=== PATIENT | male | born 1955 | race Caucasian/White ===

== ENCOUNTER 2018-09-25 08:52 | Day surgery (SDC) | payer BC, OTHER ==
[2018-09-22 08:44] VITALS: BMI 28.7
[~2018-09-25 08:52] MED LIST: LACTATED RINGERS 1,000 ML IV SCH; LIDOCAINE 1% 20 ML VIAL (10MG/ML) FOR IV START INTRADERMA PRN
[2018-09-25 09:09] VITALS: TEMP 97.7
[2018-09-25] MEDS ORDERED: PROPOFOL 10 MG/ML 20 ML VIAL IV ONE (10:28)
--- NOTE | 2018-09-25 11:07 | P.PCN ---
Date of Procedure: 09/25/18 Procedure(s) Performed: Procedure: Colonoscopy and polypectomy. Preoperative diagnosis: Screening for neoplasia, patient has history of polyps and family history of colon cancer. Postoperative diagnosis: Sigmoid polyps snared. Preparation: HalfLytely prep. Sedation: Was provided by anesthesia. Brief clinical history: The patient is a 63-year-old male who is scheduled for this evaluation for screening for neoplasia because of history of polyps and family history of colon cancer in his father. The patient had to prior exams was in 2007 and one in 2011. He has no new abdominal symptoms, bleeding or anemia. Procedure: With the patient on his left lateral decubitus position and after informed consent and adequate sedation, the perianal area was inspected and it did not show any fissures or fistulas. There were no masses felt on digital rectal examination. The Olympus CFH 190L video colonoscope was then inserted in the rectum and the usual fashion and advanced to the cecum. 2 polyps were seen in the sigmoid between 40 and 45 cm from the anal canal, the first was around 1 cm in size and it was snared and retrieved by suction, the second was 2-2.5 cm pedunculated polyp which was snared and retrieved by suctioning it to the tip of the endoscope, withdrawing the endoscope and restarting the exam. There were no other polyps or tumors. No obvious diverticular disease. The mucosa appeared healthy. I retroflexed the endoscope in the rectum before the endoscope was withdrawn. The patient tolerated the procedure well. Plan: The patient was reassured. I recommended repeat exam in 3-5 years. He will follow up with you as planned.
[2018-09-25 11:11] VITALS: BP 150/80; PULSE 60; RESP 16
== END 2018-09-25 12:15 | disposition home or self-care (01) ==
LOC: ORWHC2ENDO 08:52
DX: Z12.11 Encounter for screening for malignant neoplasm of colon (principal); D12.5 Benign neoplasm of sigmoid colon; I10 Essential (primary) hypertension; Z80.0 Family history of malignant neoplasm of digestive organs; Z86.010 Personal history of colon polyps; Z85.820 Personal history of malignant melanoma of skin; Z79.2 Long term (current) use of antibiotics
CPT/HCPCS: 88305; 45385; J2704

== ENCOUNTER → 2021-11-02 | Outpatient (CLI) | payer OTHER, MEDICARE | END | disposition home or self-care (01) | LOC: LABWHC1 12:07 | PROVIDERS: ATTEND Urology | DX: R97.20 Elevated prostate specific antigen [PSA] (principal) | CPT/HCPCS: 36415; 84153; 84154 ==

== ENCOUNTER → 2023-01-20 | Outpatient (CLI) | payer MEDICARE, OTHER ==
--- NOTE | 2023-01-20 11:40 | XR ---
EXAMINATION TYPE: XR chest 2V DATE OF EXAM: 01/20/2023 11:31 AM COMPARISON: None TECHNIQUE: XR chest 2V Frontal and lateral views of the chest. CLINICAL INDICATION:Male, 67 years old with history of R07.89; FINDINGS: Lungs/Pleura: There is no evidence of pleural effusion, focal consolidation, or pneumothorax. Pulmonary vascularity: Unremarkable. Heart/mediastinum: Cardiomediastinal silhouette is unremarkable. Musculoskeletal: No acute osseous pathology. IMPRESSION: No acute cardiopulmonary disease/process.
== END | disposition home or self-care (01) ==
LOC: RADXRMAIN 11:05
PROVIDERS: ATTEND Family Medicine
DX: R07.89 Other chest pain (principal)
CPT/HCPCS: 71046

== ENCOUNTER 2023-06-28 10:38 | Day surgery (SDC) | payer MEDICARE, OTHER ==
[2023-06-24 13:28] VITALS: BMI 27.5
[~2023-06-28 10:38] MED LIST changes: +LIDOCAINE 1% (10MG/ML) FOR IV START INTRADERMA PRN; -LIDOCAINE 1% 20 ML VIAL (10MG/ML) FOR IV START INTRADERMA PRN
[2023-06-28 12:21] VITALS: TEMP 97.3
[2023-06-28] MEDS ORDERED: PROPOFOL 10 MG/ML 20 ML VIAL IV ONE (12:37)
[2023-06-28] MEDS ORDERED: LIDOCAINE 1% INJ 10MG/ML (20 ML MDV) ONE (12:37)
--- NOTE | 2023-06-28 12:56 | P.PCN ---
Date of Procedure: 06/28/23 Procedure(s) Performed: BRIEF HISTORY: Patient is a 67-year-old pleasant white male scheduled for an elective colonoscopy as a part of screening for colon cancer and family history of colon cancer. His brother was diagnosed with colon cancer at age 61. PROCEDURE PERFORMED: Colonoscopy snare polypectomy. PREOPERATIVE DIAGNOSIS: Screening for colon cancer/family history of colon cancer. IV sedation per Anesthesia. PROCEDURE: After informed consent was obtained, the patient, was brought into the endoscopy unit. IV sedation was administered by Anesthesia under continuous monitoring. Digital rectal examination was normal. Initially the Olympus CF-160 flexible video colonoscope was then inserted in the rectum, gradually advanced into the cecum without any difficulty. Careful examination was performed as the scope was gradually being withdrawn. Ileocecal valve and the appendiceal orifice were visualized and appeared normal. Prep was excellent. Mucosa of the cecum, normal. In the ascending colon there was a 7 mm and 1.27 m polyp that was removed by snare polypectomy. Rest of the ascending colon, transverse colon, descending colon, appeared normal. In the sigmoid there was a 5 limited polyp removed by snare polypectomy. Rest of the sigmoid colon, and rectum appeared normal. Retroflexion was performed in the rectum and no lesions were seen. The patient tolerated the procedure well. IMPRESSION: 7 mm and 1.2 mm ascending colon polyp status post polypectomy 5 mm; sigmoid polyp status post polypectomy RECOMMENDATIONS: Findings of this examination were discussed with the patient as well as his family.. He was advised to follow with the biopsy doesn't have a repeat colonoscopy in 3 years
[2023-06-28 13:36] VITALS: BP 124/72; PULSE 52; RESP 20
== END 2023-06-28 13:29 | disposition home or self-care (01) ==
LOC: ORWHC2ENDO 10:38
PROVIDERS: ATTEND Internal Medicine Gastroenterology
DX: Z12.11 Encounter for screening for malignant neoplasm of colon (principal); D12.2 Benign neoplasm of ascending colon; I10 Essential (primary) hypertension; E78.5 Hyperlipidemia, unspecified; Z86.010 Personal history of colon polyps; Z80.0 Family history of malignant neoplasm of digestive organs; Z79.899 Other long term (current) drug therapy
CPT/HCPCS: 88305; 45385; J2001; J2704